=== PATIENT | male | born 2000 | race Caucasian/White ===

== ENCOUNTER 2024-01-11 12:39 | Outpatient (CLI) | payer OTHER, SELFPAY ==
--- NOTE | 2024-01-11 12:54 | XR_ITS ---
FINAL REPORT CLINICAL HISTORY: Rt ankle pain COMPARISON: None FINDINGS: Three views of the right ankle show no evidence of acute displaced fracture or dislocation of the visualized bony architecture. The joint spaces appear normal. IMPRESSION: Unremarkable exam. Reviewed, Interpreted and Dictated by Eli Lala MD Transcribed by Melissa Martinez Authenticated and [facility]
== END 2024-01-11 23:59 | disposition home or self-care (01) ==
LOC: RAD 12:40
PROVIDERS: PCP Family Medicine; Visit Provider Physician Assistant Surgical
DX: M25.571 Pain in right ankle and joints of right foot (principal)
CPT/HCPCS: 73610